=== PATIENT | female | born 1990 | race Caucasian/White ===

== ENCOUNTER 2023-02-12 23:53 | Emergency (ER) | payer BC, SELFPAY ==
--- NOTE | ~2023-02-12 | US_ITS ---
US OB <=14 wk fetus w TV DATE: 02/13/2023 04:35 INDICATION: Vaginal bleeding for 2 days TECHNIQUE: Real-time imaging via transabdominal and transvaginal approaches COMPARISON: None FINDINGS: The uterus measures approximately 8.8 cm vertical dimension, 4.5 cm AP dimension, 7.3 cm tr ansverse dimension. An intrauterine gestational sac is noted. A pole is detected with crown-rum p length averaging 0.53 cm. This would be consistent with 6 weeks 2 days +/- 4 days estimated gestati onal age and an KEILY of 10/06/2023, compared to KEILY of 09/21/2023 by LMP. No cardiac motion is detected. 2.7 cm right ovarian cyst. There is vascular flow to both ovaries. No pelvic mass lesion or abnormal pelvic free fluid collection is detected. IMPRESSION: demise Reviewed, dictated and finalized at [facility]. Reviewed, dictated and finalized at [facility]. IMPRESSION: demise
[2023-02-13] VITALS: BP 141/95; PULSE 87; RESP 18; TEMP 36.2; O2SAT 99
--- NOTE | 2023-02-13 02:39 | ED.PREGNANCY ---
HPI - General Chief complaint: Vaginal Bleeding <JENNY Maki Last Filed: 02/13/23 03:01> Stated complaint: 5-9 weeks preg, cramping and bleeding <Sailaja Sauceda PA-C - Last Filed: 02/13/23 03:01> Time Seen by Provider: 02/13/23 02:06 <JENNY Maki Last Filed: 02/13/23 03:01> History of Present Illness HPI Narrative: 33 year old female here for evaluation of vaginal bleeding x 3 days. Patient reports that she has been passing small blood clots and has not yet saturated through a menstrual pad. She is also having some lower abdominal cramping. Currently about 5 weeks , her OB is at [facility]. Has not had IUP confirmed on ultrasound. She is A+. She contacted her OB at [facility] who recommended her come here. <JENNY Maki Last Filed: 02/13/23 03:01> Related Data Home medications: Home Medications Medication Instructions Recorded Confirmed vit no.95-ferrous tablet PO 02/13/23 fumarate 28 mg-folic acid 800 mcg tablet () <JENNY Maki Last Filed: 02/13/23 03:01> Allergies/Adverse reactions: Allergies Allergy/AdvReac Type Severity Reaction Status Date / Time fluticasone [From Flonase] AdvReac Other Verified 02/12/23 23:55 <JENNY Maki Last Filed: 02/13/23 03:01> Review of Systems Review of Systems: Gen.: Denies fevers or chills Eyes: Denies eye pain or visual change ENT: Denies congestion Respiratory: Denies shortness of breath or cough CV: Denies chest pain or palpitations GI: Denies abdominal pain nausea, emesis or diarrhea : Reports vaginal bleeding Musculoskeletal: Denies back pain or muscle pain Neuro: Denies numbness, tingling, weakness or focal weakness Skin: Denies rash Except as documented, all other systems reviewed and negative <JENNY Maki Last Filed: 02/13/23 03:01> Exam Narrative: APPEARANCE: Well appearing, no pain in distress, well-nourished. Head: Normocephalic and atraumatic. EYES: PERRLA/EOMI, conjunctivae clear NOSE: No nasal drainage EARS: External ear normal in appearance THROAT: Oropharynx is clear. Mucous membranes are moist. NECK: Supple. No adenopathy, no masses. RESPIRATORY: Airway patent, respirations nonlabored. Clear to auscultation bilaterally, no rales, rhonchi, wheezing. CARDIOVASCULAR: Regular rate and rhythm without murmurs, rubs, or gallops. : small amount of dark red blood in the vaginal vault without clots, cervical os is closed, no brisk bleed or hemorrhage. ABDOMINAL: Normoactive bowel sounds. Soft, nontender, nondistended. No rebound tenderness or guarding. MUSCULOSKELETAL: Extremities are warm and well-perfused. Moves all extremities well. No edema. NEURO: Normal speech. No focal neurologic deficits. SKIN: Skin is warm and dry. No rashes. PSYCHIATRIC: Normal affect/mood.. <Sailaja Sauceda PA-C - Last Filed: 02/13/23 03:01> Course HYDRAULIC DESIGN ENGINEER/PA Physician Supervision For this patient encounter, I reviewed the HYDRAULIC DESIGN ENGINEER or PA documentation, treatment plan, and medical decision making; and I had [id number] time with this patient. Patient was updated on the results of the imaging and was encouraged to continue have close follow-up with [facility]. <Joel Queen MD - Last Filed: 02/13/23 06:10> Vital Signs Vital signs: Vital Signs Temperature 97.2 F L 02/13/23 00:00 Pulse Rate 87 02/13/23 00:00 Respiratory Rate 18 02/13/23 00:00 Blood Pressure 141/95 H 02/13/23 00:00 Pulse Oximetry 99 02/13/23 00:00 Oxygen Delivery Room Air 02/13/23 00:00 Temperature 97.2 F L 02/13/23 00:00 Pulse Rate 87 02/13/23 00:00 Respiratory Rate 18 02/13/23 00:00 Blood Pressure 141/95 H 02/13/23 00:00 Pulse Oximetry 99 02/13/23 00:00 Oxygen Delivery Room Air 02/13/23 00:00 <Sailaja Sauceda PA-C - Last Filed: 02/13/23 03:01>
[2023-02-13 02:59] LABS: Basophils Percent Auto 0.5 % (0.2-1.2); Eosinophils Absolute Auto 0.2 K/mm3 (0-0.3); Eosinophils Percent Auto 3.2 % (0-4.4); Hematocrit 40.7 % (37.0-47.0); Hemoglobin 13.4 g/dL (12.0-15.0); Immature Granulocyte Absolute 0.01 K/mm3 (0.00-0.031); Immature Granulocyte Percent A 0.1 % (0-0.5); Lymphocytes Absolute Auto 2.71 K/mm3 (0.9-3.2); Lymphocytes Percent Auto 35.7 % (18.3-44.2); Mean Corpuscular HGB Conc 32.9 g/dl (32-36); Mean Corpuscular Volume 88.1 fl (80-100); Mean Platelet Volume 10.1 fl (7.4-10.4); Monocytes Absolute Auto 0.6 K/mm3 (0.1-0.6); Monocytes Percent Auto 7.6 % (2.6-8.5); Neutrophils Percent Auto 52.9 % (45.5-73.1); Platelet Count Result 188 k/mm3 (150-375); Red Blood Count 4.62 M/mm3 (4.2-5.4); White Blood Count 7.6 K/mm3 (4.5-10.0)
[2023-02-13 03:05] LABS: Appearance Urine Clear (Clear); Bacteria Urine None Seen /hpf; Bilirubin Urine Negative (Negative); Blood Urine 3+ (Negative); Color Urine Yellow (Yellow); Glucose Urine UA Negative (Negative); Ketones Urine Negative (Negative); Leukocyte Esterase Ur Negative LEU/UL (Negative); Nitrate Urine Negative (Negative); Non Pathogenic Casts 0-2; Protein Urine Negative (Negative); RBC Urine 0-2 /hpf (0-2); Specific Grav Ur 1.009 (1.001-1.035); Squamous Epithelial Cell Urine None seen /hpf (Few); Urobilinogen Urine 0.2 mg/dL (<2.0); WBC Urine 0-5 /hpf
[2023-02-13 03:13] LABS: Anion Gap 7 mmol/L (8-16); Blood Urea Nitrogen 13 mg/dL (7-17); Calcium 9.1 mg/dL (8.4-10.2); Carbon Dioxide 29 mmol/L (22-30); Chloride 101 mmol/L (98-107); Estimated CRCL calculation 121 ml/min; Estimated Glomerular Filt Rate > 60; Glucose 86 mg/dL (65-110); Potassium 3.9 mmol/L (3.4-5.0); Sodium 137 mmol/L (137-145)
[2023-02-13 03:14] LABS: Add Urine Microscopic? YES
== END 2023-02-13 06:20 | disposition home or self-care (01) ==
PROVIDERS: Emergency Provider Physician Assistant
DX: O20.9 Hemorrhage in early pregnancy, unspecified (principal); Z3A.01 Less than 8 weeks gestation of pregnancy
CPT/HCPCS: 36415; 76801; 76817; 80048; 81001; 81025; 84702; 85025; 85461; 86850; 86900; 86901; 99284

== ENCOUNTER 2023-02-14 08:27 | Emergency (ER) | payer BC, SELFPAY ==
[2023-02-14 08:32] VITALS: BP 140/92; PULSE 96; RESP 18; TEMP 36.5; O2SAT 99
[2023-02-14 08:52] LABS: Basophils Percent Auto 0.5 % (0.2-1.2); Eosinophils Absolute Auto 0.1 K/mm3 (0-0.3); Eosinophils Percent Auto 1.3 % (0-4.4); Hematocrit 41.6 % (37.0-47.0); Hemoglobin 13.6 g/dL (12.0-15.0); Immature Granulocyte Absolute 0.02 K/mm3 (0.00-0.031); Immature Granulocyte Percent A 0.2 % (0-0.5); Lymphocytes Absolute Auto 1.83 K/mm3 (0.9-3.2); Lymphocytes Percent Auto 21.3 % (18.3-44.2); Mean Corpuscular HGB Conc 32.7 g/dl (32-36); Mean Corpuscular Hemoglobin 28.9 pg (26-34); Mean Corpuscular Volume 88.3 fl (80-100); Mean Platelet Volume 10.6 fl (7.4-10.4); Monocytes Absolute Auto 0.4 K/mm3 (0.1-0.6); Monocytes Percent Auto 4.6 % (2.6-8.5); Neutrophils Absolute Auto 6.2 K/mm3 (1.3-6.7); Neutrophils Percent Auto 72.1 % (45.5-73.1); Platelet Count Result 202 k/mm3 (150-375); Red Blood Count 4.71 M/mm3 (4.2-5.4); White Blood Count 8.6 K/mm3 (4.5-10.0)
--- NOTE | 2023-02-14 09:31 | ED.FEMALEGU ---
HPI - Female Genitourinary General Chief complaint: Vaginal Bleeding Stated complaint: miscarriage this morning - seen yest Time Seen by Provider: 02/14/23 09:02 History of Present Illness HPI Narrative: 33-year-old female presents to the emergency room today for bleeding and . She says she is about 6 weeks . She was at work this morning and had passed a very large clot and has had heavy bleeding since then. She says that she has gone through about 5 pads since 4 AM. She has generalized lower abdominal cramping but it is not as bad now as it was when this first started. Upon review of chart, it was noted that she was seen here early yesterday morning for bleeding. US was done and confirmed miscarriage in progress. She is G3, P1. Related Data Home Medications Medication Instructions Recorded Confirmed vit no.95-ferrous tablet PO 02/13/23 fumarate 28 mg-folic acid 800 mcg tablet () Allergies Allergy/AdvReac Type Severity Reaction Status Date / Time fluticasone [From Flonase] AdvReac Other Verified 02/14/23 08:36 Review of Systems Review of Systems: CONSTITUTIONAL: Denies fever, chills, or sweats. EYES: Denies visual changes, redness, or discharge. ENT: Denies rhinorrhea, congestion, sore throat, or otalgia. CARDIOVASCULAR: Denies chest pain, palpitations, or edema. RESPIRATORY: Denies cough or dyspnea. GASTROINTESTINAL: Denies abdominal pain, nausea, vomiting, or diarrhea. GENITOURINARY: as per HPI SKIN: Denies rash or itching. MUSCULOSKELETAL: Denies back pain, joint pain, or myalgia. NEUROLOGIC: Denies headache, numbness, dizziness, or weakness. PSYCHIATRIC: Denies anxiety or depression. Exam Narrative: GENERAL: Well-appearing, well-nourished, and in no acute distress. HEAD: Normocephalic, atraumatic. NECK: Supple. No adenopathy or masses. No carotid bruits or JVD CHEST: Clear to auscultation. No respiratory distress. No wheezes rales or rhonchi HEART: Regular rate and rhythm. No murmur heard. Normal peripheral pulses. ABDOMEN: Soft, nontender, nondistended, normal active bowel sounds. : Cervical os dilated, small amount of blood in vaginal vault, no hemorrhage, no clots or tissue noted EXTREMITIES: Normal range of motion. No edema. SKIN: Warm, dry, no rash. NEURO: No focal deficits. Alert and oriented x3. PSYCH: Normal mood and affect. Course Vital Signs Vital signs: Vital Signs Temperature 36.5 C 02/14/23 08:32 Pulse Rate 96 02/14/23 08:32 Respiratory Rate 18 02/14/23 08:32 Blood Pressure 140/92 H 02/14/23 08:32 Pulse Oximetry 99 02/14/23 08:32 Oxygen Delivery Room Air 02/14/23 08:32 Temperature 36.5 C 02/14/23 08:32 Pulse Rate 96 02/14/23 08:32 Respiratory Rate 18 02/14/23 08:32 Blood Pressure 140/92 H 02/14/23 08:32 Pulse Oximetry 99 02/14/23 08:32 Oxygen Delivery Room Air 02/14/23 08:32 MDM - Female Genitourinary Lab Data 02/14/23 08:44 Labs: Lab Results 02/14/23 Range/Units 08:44 WBC 8.6 (4.5-10.0) K/mm3 RBC 4.71 (4.2-5.4) M/mm3 Hgb 13.6 (12.0-15.0) g/dL Hct 41.6 (37.0-47.0) % MCV 88.3 (80-100) fl MCH 28.9 (26-34) pg MCHC 32.7 (32-36) g/dl RDW 14.0 (11.5-14.5) % Plt Count 202 (150-375) k/mm3 MPV 10.6 H (7.4-10.4) fl Immature Gran % (Auto) 0.2 (0-0.5) % Neut % (Auto) 72.1 (45.5-73.1) % Lymph % (Auto) 21.3 (18.3-44.2) % Mcpherson % (Auto) 4.6 (2.6-8.5) % Eos % (Auto) 1.3 (0-4.4) % Baso % (Auto) 0.5 (0.2-1.2) % Lymph # (Auto) 1.83 (0.9-3.2) K/mm3 Mcpherson # (Auto) 0.4 (0.1-0.6) K/mm3 Eos # (Auto) 0.1 (0-0.3) K/mm3 Baso # (Auto) 0.0 (0.0-0.1) K/mm3 Abs Immat Gran (auto) 0.02 (0.00-0.031) K/mm3 Absolute Neuts (auto) 6.2 (1.3-6.7) K/mm3 Absolute Nucleated RBC 0.0 (0.0-0.012) K/mm3 Nucleated RBC % 0.0 (0.0-0.2) % Beta HCG, Quant 5010.40 mIU/ML Discharge Plan Discharge Clinical Impression:
== END 2023-02-14 11:06 | disposition home or self-care (01) ==
PROVIDERS: Preventive Medicine Aerospace Medicine; Emergency Provider Nurse Practitioner Family
DX: O03.9 Complete or unspecified spontaneous abortion without complication (principal); Z3A.01 Less than 8 weeks gestation of pregnancy
CPT/HCPCS: 36415; 84702; 85025; 99284

== ENCOUNTER 2023-02-25 15:47 | Outpatient (CLI) | payer BC, SELFPAY ==
--- NOTE | ~2023-02-25 | US_ITS ---
EXAMINATION: US pelvic complete w TV DATE: 02/25/2023 16:27 INDICATION: Missed miscarriage. TECHNIQUE: Multiple transabdominal and transvaginal sonographic images of the pelvis were obtained. COMPARISON: Ultrasound 02/13/2023 FINDINGS: TRANSABDOMINAL ULTRASOUND: The uterus measures 6.6 x 4.0 x 4.9 cm. There is no free fluid in the pelvis. TRANSVAGINAL ULTRASOUND: The endometrial complex measures 6 mm in thickness. The right ovary measures 3.9 x 2.8 x 2.7 cm. Ther e is a 2.7 cm dominant follicle in right ovary. The left ovary measures 1.9 x 1.8 x 1.6 cm. There is normal vascular flow in the ovaries. IMPRESSION: 1. No retained products of conception. Reviewed, dictated and finalized at [facility].
== END 2023-02-25 15:48 | disposition home or self-care (01) ==
PROVIDERS: Visit Provider Obstetrics & Gynecology
DX: O02.1 Missed abortion (principal)
CPT/HCPCS: 76830; 76856